=== PATIENT | male | born 1970 | race Caucasian/White ===

== ENCOUNTER 2025-07-26 17:32 | Inpatient (IN) | payer MEDICAID ==
[~2025-07-26] VITALS: Ht 177.8 cm; Wt 149.0 kg
[2025-07-26 22:28] VITALS: BP 131/87; PULSE 107; RESP 16; TEMP 97.9; O2SAT 96
[2025-07-26 23:00] VITALS: RESP 18; O2SAT 98
--- NOTE | 2025-07-27 00:27 | HISTORY AND PHYSICAL-Residence ---
History & Physical Providers to Resident Creating Document: ZARA GONZALEZPEBBLESLOVEMARY ~ History of Present Illness Reason for Admit\Complaint: GI bleeed History of Present Illness This is a 55-year-old male with a history of diastolic heart failure, CAD, DVT, pulmonary embolism, obesity, s/p gastric bypass, hypertension was transferred here from [place] for evaluation of upper GI bleed. Patient initially presented to [place] with a complaint of shortness of breadth, leg swellings. The shortness of breadth started 3-4 days ago, was slowly progressive to the point where he was unable to breathe even at rest, associated with orthopnea and PND. Also reports mild chest pain on the right side, lasted for a minute, for/10, nonradiating. Also reports palpitations while performing daily activities. Patient was admitted at [facility] [place] for management of acute hypoxemic respiratory failure and atrial fibrillation. During the admission they noticed a drop in the hemoglobin from 9-7, patient also reported black-colored stools, fecal occult blood test was positive, the patient was transferred to [facility] for GI services. Patient reports on and off black-colored stools for five days, denies hematemesis. He had an endoscopy done in [place] in September of 2024, which was apparently normal, last colonoscopy was 10 years also was apparently normal. He takes aspirin daily. He was on Eliquis for one year about four years ago. He has family history of colon cancer in his mother. He drinks alcohol almost daily, whiskey 3-4 glasses a day. He admits to consistent drinking. No known history of cirrhosis. Course at [place]-07/20/2025 to 07/27/2025 Patient was admitted for acute hypoxemic respiratory failure secondary to diastolic heart failure, was on 3-4 L of oxygen, was given Lasix and GDMTnitiated patient was found to be in new onset atrial fibrillation, with a heart rate of 160s, was on Cardizem drip, with improvement in heart rate, transition to oral medications Considering shortness of breath and tachycardia, CTA was done which ruled out pulmonary embolism. right lower lobe anemia, CT chest showed consolidation in the right lower lobe with pleural effusion, was on ceftriaxone and doxycycline, repeat chest x-ray showed improvement, antibiotics were discontinued Also managed for DIONICIO Patient reported black-colored stools, fecal occult blood test was positive with a drop in hemoglobin from 9-7, patient was transferred to [facility] for GI services. 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 Allergies: Coded Allergies: ciprofloxacin (Verified Allergy, Unknown, rash, 07/27/25) Past Medical History Past Medical History Diastolic heart failure CAD, positive stress test in July 2024, catheterization without stent placement DVT, pulmonary embolism in 2016, was on Eliquis for one year Morbid obesity Hypertension Umbilical hernia Past Surgical History Surgical History Comment Gastric bypass surgery Right shoulder rotator cuff repair Endoscopy in [place] last year, September 2024 Past Social History Social History Comment Denies history of smoking Daily alcohol use, last drink was 9 days ago, drinks 3-4 glasses of whiskey daily No history of drug use Lives with his mother Functionally independent ROS Constitutional: Denies: no symptoms reported, see HPI, chills, diaphoresis, fever, malaise, weakness, other Eyes: Denies: no symptoms reported, see HPI, pain, discharge, blurred vision, double vision, itching, photophobia, redness, tearing, other ENT: Denies: no symptoms reported, see HPI, ear pain, ear bleeding, ear discharge, hearing loss, ear ringing, nose pain, nose bleeding, nose congestion, nose discharge, throat pain, throat swelling, voice change, mouth pain, mouth bleeding, mouth swelling, other Respiratory: Reports: orthopnea, shortness of breath Cardiovascular: Denies: no symptoms reported, see HPI, chest pain, left arm pain, diaphoresis, lightheadedness, syncope, edema, palpitations, irregular heart rate, other Gastrointestinal: Reports: melena; Denies: no symptoms reported, see HPI, abdomen distended, abdominal pain, nausea, vomiting, diarrhea, constipated, hematemesis, hematochezia, rectal bleeding, rectal pain, dysphagia, poor appetite, poor fluid intake, other Genitourinary: Denies: no symptoms reported, see HPI, burning, discharge, dysuria, frequency, flank pain, hematuria, incontinence, pain, decreased urine output, urgency, other Neurological: Denies: no symptoms reported, see HPI, speech problem, headache, dizziness, fainting, tingling, left sided numbness, right sided numbness, left sided weakness, right sided weakness, problems walking, unable to move lower ext, unable to move upper ext, petit mal seizures, tonic-clonic seizures, cognitive dysfunction, other Musculoskeletal: Denies: no symptoms reported, see HPI, pain, swelling, back pain, gout, joint pain, joint swelling, muscle pain, muscle swelling, muscle stiffness, neck pain, other Exam Vitals: Vital Signs Date Time Temp Pulse Resp B/P (MAP) Pulse Ox O2 Delivery O2 Flow Rate FiO2 07/26/25 23:10 94 07/26/25 22:28 97.9 16 131/87 (102) 96 Room Air General: General: General:, obese male, alert and awake, not in acute distress Head: Normocephalic, atraumatic Eyes: Pupils- 3mm, reacting to light, conjunctiva- anicteric Neck: Supple, no lymphadenopathy, no carotid bruit Respiratory: No use of accessory muscles of respiration, no crackles or wheezing Cardiac: S1-S2 heard, rhythm regular, no murmur Abdomen: non distended, diffuse tenderness, no guarding, no rigidity, no organomegaly, bowel sounds - heard, Extremities: no clubbing, no edema, no deformities, peripheral pulses - 2+ Skin: warm and dry Advance Care Planning Advanced Care plannin - 30 Minutes (I spent 17 minutes in discussing resuscitative measures, the patient was to be full code) Additional Plan Assessment This is a 55-year-old male with a history of diastolic heart failure, CAD, DVT, pulmonary embolism, obesity, s/p gastric bypass, hypertension was transferred here from [place] for evaluation of upper GI bleed. He was initially admitted there for management of acute exacerbation of heart failure, atrial fibrillation. Upper GI bleed Likely secondary to alcohol-induced gastritis Reports black stools, no history of hematemesis Last endoscopy September 2024, last colonoscopy 10 years ago Hemoglobin 7.9 at [facility] H&H q.6, transfuse if Hb <8 concerning cardiac history Plan Started on pantoprazole 40 mg IV b.i.d. NPO for endoscopy tomorrow IV fluids not given for history of congestive heart failure with reduced ejection fraction Elevated liver enzyme Could be secondary to congestive hepatopathy vs on-call in history Liver enzymes trended down while he was at [facility] Follow up with the repeated enzymes Acute exacerbation of new onset CHF with reduced ejection fraction ACC stage C Currently on room air ProBNP 1754 Patient had pulmonary congestion at the time of admission [facility], currently lung sound clear, chest x-ray ordered ECHO on 07/20/2025 showed ejection fraction of 30-35% with diffuse hypokinesis, dilated right and left atria, last echo in July 2024 showed ejection fraction of 50-60% 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 Pedraza on 08/15 for abdominal stress test, report showed-focal mid LAD stenosis, lad was small in caliber, intervention would almost certainly involve large caliber diagonal making it complicated, no intervention was attempted. Continued atorvastatin 40 mg Aspirin held in view of GI bleed New onset Atrial fibrillation, controlled ventricular rate Chauncey Vasc score 2 Patient was in RVR at the time of admission at [facility] Continues to be in AFib with controlled ventricular rate, Continued metoprolol succinate 50 mg Anticoagulation held in view of GI bleed DIONICIO, improved Patient was in DINOICIO at the time of admission in [facility] with a creatinine of 2.6, improved to 0.9 Monitor with daily BP Possible pneumonia with right lower lobe consolidation At [facility] initial CT showed right lower lobe consolidation with small effusion, received ceftriaxone and doxycycline Repeat chest x-ray showed no pleural effusion or infiltrate No signs of infection were noticed, antibiotics were discontinued History of DVT, pulmonary embolism in 2016 At the time of admission [facility], concerning shortness of breath and tachycardia CTA was done which ruled out pulmonary embolism. Morbid Obesity BMI 47.1 Websphere Developer consult requested Code status: Full code DVT prophylaxis: None GI prophylaxis: Pantoprazole 40 mg IV b.i.d. Diet: Currently NPO Lines/tubes: Peripheral IV line Status: Guarded Samir Gonzalez M.D PGY2 Addendum I personally reviewed the chart, labs and imaging and reviewed the patient with the team. I agree with the assessment and plan as documented by the resident. Patient was seen through remote audio-visual assessment through HIPAA compliance setup. Date of Service: Jul 27, 2025 Billing Provider: KARISHMA CEBALLOS MD, PRAVAHIKA, [facility] Jul 27, 2025 00:27 KARISHMA CEBALLOS MD Jul 27, 2025 02:23
[2025-07-27] MEDS ORDERED: magnesium sulf-water 2g/50mL 50 ML IV PRN (01:10)
[2025-07-27] MEDS ORDERED: potassium Cl 20 mEq SR tablet PO PRN ×2 (01:10)
[2025-07-27] MEDS ORDERED: magnesium sulf-water 4G/100mL 100 ML IV PRN (01:10)
[2025-07-27] MEDS ORDERED: potassium Cl 40MEQ/1/2NS 520ml 520 ML IV PRN (01:10)
[2025-07-27] MEDS ORDERED: magnesium hydroxide 30ml (MOM) UD suspension PO PRN (01:10)
[2025-07-27] MEDS ORDERED: ondansetron/PF 4mg/2ml inj IV PRN (01:10)
[2025-07-27] MEDS ORDERED: mag hydrox/Alum hydrox/simeth 30ml oral suspension PO PRN (01:10)
[2025-07-27] MEDS ORDERED: magnesium Cl slow-release 64mg tablet PO PRN (01:10)
[2025-07-27] MEDS ORDERED: FOLIC A (01:31)
[2025-07-27] MEDS ORDERED: LOSA50TA64 PO (01:31)
[2025-07-27] MEDS ORDERED: EMPA10TA PO (01:31)
[2025-07-27] MEDS ORDERED: FURO20TA4 PO (01:31)
[2025-07-27] MEDS ORDERED: ATOR40TA72 PO (01:31)
[2025-07-27] MEDS ORDERED: FOLI0.4T6 PO (01:31)
[2025-07-27] MEDS ORDERED: CARV6.2553 PO (01:31)
[2025-07-27] MEDS ORDERED: THIA50TA10 PO (01:40)
[2025-07-27] MEDS ORDERED: Folic Acid PO (01:40)
[2025-07-27] MEDS ORDERED: [UNRECOGNIZED DRUG - OTHER] PO (01:40)
[2025-07-27 02:36] LABS: APTT 26 SECONDS (22-32); INR 1.0 INR
[2025-07-27 02:41] LABS: MEAN PLATELET VOLUME 9.4 FL (7.4-10.4); RED CELL DISTRIBUTION WIDTH 19.7 % (11.5-14.5)
[2025-07-27 02:49] LABS: CREATININE 1.14 MG/DL (0.60-1.10); PRO BRAIN NATRIURETIC PEPTIDE 2337 PG/ML (0-125); TOTAL CARBON DIOXIDE 27.3 MMOL/L (24-32); eCRCL 76 ML/MIN; eGFR 67 ML/MIN
[2025-07-27 03:04] LABS: PLATELET ESTIMATE DECREASED
[2025-07-27 05:00] VITALS: BP 132/67; PULSE 71; RESP 16; TEMP 98.6; O2SAT 99
--- NOTE | 2025-07-27 07:56 | ELECTROCARDIOGRAPH REPORT ---
[facility] Test Date: 2025-07-27 Test Time: 07:54:12 Pat Name: TETO MORA Department[facility] 4S [id number] Room: ORTHO [facility] B Gender: M Landscape Designer: LC : 1970 Requested By: ARLETH HEMPHILL Order Number: [id number] Reading MD: Dr. ROB Buenrostro Measurements Intervals [place] Rate: 89 P: 0 LA: 0 QRS: 39 QRSD: 99 T: 70 QT: 374 QTc: 456 Interpretive Statements Atrial fibrillation Low voltage, extremity and precordial leads Electronically Signed On 07-27-2025 17:02:[address] ROB Buenrostro Please click the below link to view image of tracing.
[2025-07-27] MEDS: K and/or MAG REPLACEMENT MC SCH (08:00)
--- NOTE | 2025-07-27 08:08 | RADIOLOGY REPORT ---
CHEST RADIOGRAPH Indication: CHF exacerbation Technique: Single frontal view of the chest was obtained Comparison: None FINDINGS: Lines and Tubes: None Lungs: No focal consolidation. Pleura: No effusion. No pneumothorax. Cardiomediastinal contours: Cardiomegaly. Bones: No acute osseous abnormality. IMPRESSION: Cardiomegaly with CHF.
[2025-07-27] MEDS: metoprolol succinate 25mg (24-HOUR) SR. Tablet PO SCH (08:16)
[2025-07-27] MEDS: docusate sod 100mg capsule PO SCH (08:16)
[2025-07-27 08:18] LABS: MEAN PLATELET VOLUME 9.1 FL (7.4-10.4); RED CELL DISTRIBUTION WIDTH 20.0 % (11.5-14.5)
[2025-07-27 10:00] VITALS: BP 125/83; PULSE 81; RESP 13; TEMP 98.2; O2SAT 99
--- NOTE | 2025-07-27 11:04 | CONSULTATION REPORT - RESIDENT ---
Consult Providers to CC Resident Creating Document: NIRMALA MORALES RES History of Present Illness Reason for Admit\Complaint: Black tarry stools, possible GI bleed History of Present Illness A 55 years old male patient with past medical history of diastolic heart failure, CAD, DVT, pulmonary embolism, obesity, s/p gastric bypass, hypertension was transferred from [facility] for the evolution of GI bleed. Patient was admitted at [facility] with acute hypoxic respiratory failure secondary to diastolic heart failure, new onset atrial fibrillation, pneumonia, DIONICIO which were improved significantly. During the hospital course, they noticed drop in hemoglobin from 9-7, Patient states that he has on and off black tarry stools. Fecal occult blood test was positive. The patient was transferred to [facility] for GI services. Patient denies any abdominal pain, nausea, vomiting, hematochezia, heartburn, dyspepsia, abdominal distention, chest pain, dizziness, syncope. Patient had endoscopy in [place] in September 2024, which was normal. Patient had colonoscopy ten years back which was normal. He takes aspirin daily. Family history of colon cancer in mother and prostatic cancer in father. Allergies: Coded Allergies: ciprofloxacin (Verified Allergy, Unknown, rash, 07/27/25) Home Medications Home Medications Active [folic a] Reported Vitamin B-1 (Thiamine HCl) 50 Mg Tablet 2 Tab PO DAILY 30 Days [spir] 12.5 Mg PO DAILY [Folic Acid*] 1 Mg PO DAILY Jardiance (Empagliflozin) 10 Mg Tablet 1 Tab PO DAILY 30 Days Atorvastatin Calcium 40 Mg Tablet 1 Tab PO DAILY Carvedilol 6.25 Mg Tablet 1 Tab PO BID Losartan Potassium 50 Mg Tablet 1 Tab PO DAILY Furosemide 20 Mg Tablet 1 Tab PO DAILY Past Medical History Past Medical History Diastolic heart failure CAD, positive stress test in July 2024, catheterization without stent placement DVT, pulmonary embolism in 2016, was on Eliquis for one year Morbid obesity Hypertension Umbilical hernia Past Surgical History Surgical History Comment Gastric bypass surgery Right shoulder rotator cuff repair Past Social History Social History Comment He drinks around 500 mL of whiskey daily from around 20 years Denies history of smoking Denies any recreational drug use Lives with his mother Functionally independent ROS ROS Constitutional: No fever, chills, dizziness, weight gain or loss, night sweats Eyes: No pain, erythema, discharge, blurring of vision ENT: No sore throat, epistaxis, tinnitus Cardiovascular:No chest pain, palpitations, syncope, lower extremity edema, paroxysmal nocturnal dyspnea Respiratory: No Shortness of breath and cough, No hemoptysis. Gastrointestinal:Reports Abdominal pain, vomiting,nausea and melena. Normal appetite. No constipation,diarrhea, hematemesis, Musculoskeletal: No swelling or edema of extremities. Integumentary: No change in skin, hair, nails. No swelling, bruising, abrasions Neurologic: No weakness,No headache, neck pain, numbness or tingling of the extremities, Psychiatric: No delusions, depression, loss of interest in normal activity or change in sleep pattern, hallucinations, suicidal ideations Endocrine: No fatigue, no weakness. polydipsia, polyuria, change in appetite, heat or cold intolerance, sweating, dry skin Hematological: No bleeding, petechiae, bruising Allergies: No asthma or urticaria Exam Vitals: Vital Signs Date Time Temp Pulse Resp B/P (MAP) Pulse Ox O2 Delivery O2 Flow Rate FiO2 07/27/25 08:15 Room Air 07/27/25 08:15 75 07/27/25 05:00 98.6 16 132/67 (88) 99 General: Awake , alert and oriented to time,place, person, moderately obese, not in distress HEENT: Atraumatic, normocephalic, PERRLA, EOMI, anicteric sclera ; pink conjunctiva, moist mucos membranes Neck: Trachea midline. Supple, normal range of motion, no JVD, no lymphadenopathy Chest and Respiratory: Equal breath sounds bilaterally, no tachypnea, wheezing, ronchi,rubs .Chest wall is symmetric and without deformity. Cardiac: S1, S2 heard,Regular rate and rhythm, no murmurs heard. Abdomen: Soft, No tenderness, No guarding or rigidity, Glover's sign negative. normal bowel sounds x4 quadrant, no hepatosplenomegaly MSK: Range of motion of all extremities are normal. There is no joint pain or joint swelling or joint erythema. There is no muscle pain or tenderness or swelling. Extremities: warm, well-perfused, No cyanosis, clubbing, 2+ pulses felt Neurological: Speech is clear, alert, and oriented x 4. No sensory or motor deficits. Cranial nerves II-XII intact. Skin: Warm and dry Psychiatry: Affect and mood are normal Diagnostic Data Last Recorded Lab Results: 9/5/25 0748 07/27/25 0212 Diagnostic Data: Laboratory Tests Test 07/27/25 02:12 Prothrombin Time 10.7 SECONDS (9.0-12.0) INR International Normalized Ratio 1.0 INR Activated Partial Thromboplast Time 26 SECONDS (22-32) Coagulation Comments Additional Plan A 55 years old male patient with past medical history of diastolic heart failure, CAD, DVT, pulmonary embolism, obesity, s/p gastric bypass, hypertension was transferred here from [place] for evaluation of upper GI bleed. Normocytic normochromic anemia Possible upper GI bleed Possible gastritis Hemoglobin is 8.7 and hematocrit is 26.9 Monitor H&H q.6h, transfuse PRBC if hemoglobin level is less than 7 Follow up with iron studies INR is normal Patient had endoscopy in [place] in September 2024, which was normal. Patient had colonoscopy ten years back which was normal. Patient takes baby aspirin daily. Continue on IV Protonix 40 mg b.i.d. daily Clear liquid diet, NPO after midnight, planned for EGD tomorrow Acute exacerbation of new onset CHF with reduced ejection fraction AHA stage C History of CAD New onset Atrial fibrillation, controlled ventricular rate Chauncey Vasc score 2 DIONICIO, improved Possible pneumonia with right lower lobe consolidation Morbid Obesity Alcohol use disorder History of DVT, pulmonary embolism in 2016 -continue management of all other comorbid conditions as per primary hospitalist team recommendation Code status: Full code DVT prophylaxis : SCDs GI prophylaxis: Protonix Nutrition: Clear liquid diet, NPO after midnight, planned for EGD tomorrow Line/tube: PIV Disposition: Patient was admitted with anemia and black tarry stools with possible upper GI bleed. planned for EGD tomorrow. Will need a screening/surveillance colonoscopy (FH colon cancer) in future. Guillermo Morales MD Internal Medicine Resident, PGY 1 Date of Service: Jul 27, 2025 Billing Provider: ANNA RODRIGUEZ MD, SUNIL KUMAR, RES Jul 27, 2025 11:04 ANNA RODRIGUEZ MD Jul 27, 2025 14:59
--- NOTE | 2025-07-27 13:09 | RADIOLOGY REPORT ---
INDICATION: elevated lft, evaluate for cirrhosis TECHNIQUE: Multiple real-time sonographic images of the abdomen were obtained. COMPARISON: None FINDINGS: The liver is heterogeneous in echogenicity. The liver measures 13cm. No intrahepatic bilia ry ductal dilatation is noted. Gallbladder surgically removed. Common bile duct measures 8 mm The right kidney measures 13cm. No hydronephrosis. The pancreas is not well visualized due to obscuration from bowel gas. The visualized portions of the IVC and aorta are grossly unremarkable. IMPRESSION: Hepatic steatosis
[2025-07-27 13:44] LABS: CHOL/HDL RATIO 2.4 (0.00-4.99); LDL CHOLESTEROL 56 MG/DL (50-100)
[2025-07-27 13:57] LABS: MEAN PLATELET VOLUME 9.2 FL (7.4-10.4); RED CELL DISTRIBUTION WIDTH 19.2 % (11.5-14.5)
--- NOTE | 2025-07-27 13:59 | PROGRESS NOTE- Residence ---
Progress Note - Resident Providers to CC Resident Creating Document: JULIAN JOHN CC: MARY ALICE WILLAMS MD ~ Antibiotic Timeout Antibiotic Ordered?: Yes Subjective Patient was examined at bedside today. He was in very good spirits. He states his last bowel movement was yesterday in the afternoon and that it was formed and brown. His last melenic stool was 1 1/2 days ago. He does reports he continues with SOB on exertion, but significantly improved. Objective Vital Signs Date Time Temp Pulse Resp B/P (MAP) Pulse Ox O2 Delivery O2 Flow Rate FiO2 07/27/25 10:00 98.2 81 13 125/83 (97) 99 Room Air Result Diagram: 07/27/25 0748 07/27/25 0212 General: obese habitus, awake, alert oriented to place, time, and person HEENT: No pallor present, no icterus, moist mucous membranes Neck: No masses and tenderness Resp: Slightly labored. Lungs clear to auscultation bilaterally. Chest: Normal expansion Cardiovascular: Difficult to auscultate due to body habitus, Regular Rate and rhythm, normal S1 and S2, no audible murmur, rub or gallop Abdomen: Soft and nontender, no organomegaly, no guarding and rigidity, bowel sounds present Neuro: No focal weakness in the upper and lower limb muscles, power of the muscles 5/5 bilateral upper and lower extremities, normal reflexes bilaterally. Cranial nerves intact Extremities: Chronic ectatic changes in both LE, 2+ edema. No cyanosis,clubbing Skin: Warm and Dry. No lesions Psych: Normal affect Coagulation Studies Laboratory Tests Test 07/27/25 02:12 Prothrombin Time 10.7 SECONDS (9.0-12.0) INR International Normalized Ratio 1.0 INR Activated Partial Thromboplast Time 26 SECONDS (22-32) Coagulation Comments Plan Plan GI bleed, likely upper Likely secondary to alcohol-induced gastritis Melena has now stopped Last endoscopy September 2024, last colonoscopy 10 years ago Hemoglobin has remained stable >8 Continue H&H q.6 Continue pantoprazole 40 mg IV b.i.d. GI on board. EGD postponed for tomorrow Resume diet. NPO after midnight Elevated liver enzymes Hepatic steatosis PT-INR are normal Liver enzymes trended down while he was at [facility] abdomen shows hepatic steatosis Continue to follow up LFTs Acute on chronic HFrEF, newly diagnosed ACC stage C, [place] class III Currently on room air ProBNP 1754 Patient had pulmonary congestion at the time of admission [facility], currently lung sound clear ECHO on 07/20/2025 showed ejection fraction of 30-35% with diffuse hypokinesis, dilated right and left atria, last echo in July 2024 showed ejection fraction of 50-60% 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 Pedraza on 08/15 for abdominal stress test, report showed-focal mid LAD stenosis, lad was small in caliber, intervention would almost certainly involve large caliber diagonal making it complicated, no intervention was attempted. Continued atorvastatin 40 mg Aspirin held in view of GI bleed New onset Atrial fibrillation, controlled ventricular rate [id number] score 3 Patient was in RVR at the time of admission at [facility], now resolved Continues to be in AFib with controlled ventricular rate Continued metoprolol succinate 50 mg Anticoagulation held in view of GI bleed DIONICIO, improved Patient was in DIONICIO at the time of admission in [facility] with a creatinine of 2.6, improved to 0.9 Monitor with daily CMP Alcohol use disorder Last drink 10 days ago He does have history of alcohol withdrawals. Currently asymptomatic He is trying to quit Substance abuse navigator consult in place Possible pneumonia with right lower lobe consolidation, ruled out At [facility] initial CT showed right lower lobe consolidation with small effusion, received ceftriaxone and doxycycline Repeat chest x-ray showed no pleural effusion or infiltrate No signs of infection were noticed, antibiotics were discontinued History of DVT, pulmonary embolism in 2016 At the time of admission [facility], concerning shortness of breath and tachycardia CTA was done which ruled out pulmonary embolism Patient was on Warfarin in the past which he discontinued 3 years ago Morbid Obesity Likely sleep apnea BMI 47.1 Setter Machine consult requested Will need sleep study on an outpatient basis Code status: Full code DVT prophylaxis: None GI prophylaxis: Pantoprazole 40 mg IV b.i.d. Diet: Heart healthy diet. NPO after midnight Lines/tubes: Peripheral IV line Status: Guarded Code Status: Full code DVT prophylaxis: None GI prophylaxis: Protonix Nutrition: Heart healthy diet Prognosis: Guarded Disposition: Continue care in ortho floor. EGD tomorrow Julian Anderson MD Internal Medicine Resident PGY-2 Date of Service: Jul 27, 2025 Billing Provider: MARY ALICE WILLAMS MD, LEONARDO LUIS Jul 27, 2025 13:59
[2025-07-27] MEDS: EMPAGLIFLOZIN 10 MG TABLET PO SCH (16:39)
[2025-07-27 18:00] VITALS: BP 120/90; PULSE 78; RESP 15; TEMP 97.4; O2SAT 100
[2025-07-27 21:23] LABS: MEAN PLATELET VOLUME 10.3 FL (7.4-10.4); RED CELL DISTRIBUTION WIDTH 19.8 % (11.5-14.5)
[2025-07-27 22:00] VITALS: BP 114/78; PULSE 99; RESP 18; TEMP 97.9; O2SAT 98
[2025-07-28] VITALS (22 sets, daily range): BP systolic 103–130; BP diastolic 53–83; PULSE 74–120; RESP 12–19; TEMP 97.3–98.5; O2SAT 94–99
[2025-07-28 02:36] LABS: MEAN PLATELET VOLUME 9.1 FL (7.4-10.4); RED CELL DISTRIBUTION WIDTH 19.4 % (11.5-14.5)
[2025-07-28 07:50] LABS: CHOL/HDL RATIO 2.7 (0.00-4.99); CREATININE 0.96 MG/DL (0.60-1.10); LDL CHOLESTEROL 59 MG/DL (50-100); PHOSPHORUS 3.9 MG/DL (2.3-4.5); TOTAL CARBON DIOXIDE 28.3 MMOL/L (24-32); eCRCL 90 ML/MIN; eGFR 81 ML/MIN
[2025-07-28] MEDS ORDERED: fentaNYL/PF 50MCG/1 ML 2ML syringe ONE (09:28)
[2025-07-28] MEDS ORDERED: LIDOcaine 2% Viscous 15ml cup ONE (09:29)
[2025-07-28] MEDS ORDERED: MIDAZolam 1 MG/ML 5ML VIAL ONE (09:29)
[2025-07-28 12:03] LABS: MEAN PLATELET VOLUME 9.2 FL (7.4-10.4); RED CELL DISTRIBUTION WIDTH 19.5 % (11.5-14.5)
[2025-07-28 12:51] LABS: % IRON SATURATION 7 % (11-46)
[2025-07-28 14:31] LABS: MEAN PLATELET VOLUME 9.4 FL (7.4-10.4); RED CELL DISTRIBUTION WIDTH 19.8 % (11.5-14.5)
--- NOTE | 2025-07-28 15:03 | CONSULTATION REPORT ---
Cardiac Consultation Report Providers to CC ~ Subjective Subjective Cardiology consultation: Finding of new cardiomyopathy. No echocardiogram on the chart. Patient examined old records reviewed from [place]. Present records reviewed medications reviewed. Patient is lying in bed comfortable and would like to go home however he does not have a primary has not established in [facility] yet and he is going to remain for a colonoscopy as there was no explanation for his GI loss. He had melanotic stools. According to records I do not have the actual reports on 08/15 patient had a heart catheterization with focal mid left anterior descending stenosis LAD was small in caliber intervention would involve large caliber diagonal no intervention was attempted by Dr. Pedraza therapist radiation at [facility]. Aspirin was held as he had a GI bleed at that time also. 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 He has remote bariatric surgery and during this hospitalization he had a endoscopy with a report of a Billroth II gastro jejunostomy. He is ejection fraction is reported to be 35% or so from another facility. Ejection fraction 55% reported from 07/2024. Electrocardiogram at rest shows rate controlled atrial fibrillation. He is presently on guideline directed therapy for heart failure. Objective Vitals Vital Signs Date Time Temp Pulse Resp B/P (MAP) Pulse Ox O2 Delivery O2 Flow Rate FiO2 07/28/25 11:26 183 07/28/25 10:30 13 119/73 (88) 99 Room Air 0.0 07/28/25 09:46 97.5 Lab Results: 07/28/25 1347 07/28/25 0603 Objective BMI 47. Carotid no bruit chest clear to auscultation percussion heart PMI not palpable very large abdomen. Femoral pulses +1 foot pulses plus one chronic pitting edema bilaterally. Ocular motion intact no nystagmus no tremors speech fluent Coagulation Studies Laboratory Tests Test 07/27/25 02:12 Prothrombin Time 10.7 SECONDS (9.0-12.0) INR International Normalized Ratio 1.0 INR Activated Partial Thromboplast Time 26 SECONDS (22-32) Coagulation Comments Problem\Assessment\Plan Additional Plan Impression alcoholic cardiomyopathy with recurrent atrial fibrillation recurrent GI bleeding remote Eliquis use. Asymptomatic atherosclerotic heart disease. Recommendation: 1. As patient does not have a primary care yet he is going to establish in [place]. He should stay and have his colonoscopy. 2. Do not restart anticoagulation. Patient qualifies for a Watchman device to be arranged as an outpatient. 3. If ambulatory heart rate becomes a problem to control would add digoxin 0.125 mg daily. He has acute kidney injury from [facility] [place] has resolved creatinine is now 0.96. EDWIN JOHNSTON MD Jul 28, 2025 15:03
[2025-07-28 16:09] LABS: LEUKOCYTE ESTERASE ,URINE NEGATIVE (Neg); NITRITES, URINE NEGATIVE (Neg); OCCULT BLOOD,URINE NEGATIVE (Neg)
[2025-07-28 16:18] LABS: UA COLLECTION TYPE CLN CATCH MIDSTREAM
[2025-07-28 16:30] LABS: URINE AMPHETAMINE SCREEN NEGATIVE (Neg); URINE BARBITUATE SCREEN NEGATIVE (Neg); URINE BENZODIAZEPINES SCREEN POSITIVE (Neg); URINE CANNABINOID SCREEN NEGATIVE (Neg); URINE COCAINE SCREEN NEGATIVE (Neg); URINE METHADONE SCREEN NEGATIVE (Neg); URINE OPIATE SCREEN NEGATIVE (Neg); URINE PHENCYCLIDINE SCREEN NEGATIVE (Neg)
--- NOTE | 2025-07-28 16:45 | PROGRESS NOTE- Residence ---
Progress Note - Resident Providers to CC Resident Creating Document: LACEY CHINCHILLA RES ~ Antibiotic Timeout Antibiotic Ordered?: No Subjective Patient seen and examined today. He is comfortably resting in the bed. He got EGD done today. He complains of on and off black tarry stools. Has not had a bowel movement this morning Objective Vital Signs Date Time Temp Pulse Resp B/P (MAP) Pulse Ox O2 Delivery O2 Flow Rate FiO2 07/28/25 14:30 91 16 110/74 (86) 97 Room Air 07/28/25 10:45 97.7 07/28/25 10:30 0.0 Result Diagram: 07/28/25 1347 07/28/25 0603 General: Alert and oriented x 4 HEENT: Normocephalic and atraumatic. Pupils equal round and reactive to light and accommodation. Extraocular movements intact. Oral and nasal mucosa moist Neck: Trachea is in midline. No masses or JVD Lungs: Bilateral normal breath sounds. Bilateral basal crackles present. No rhonchi or wheezes Heart: Regular rate and rhythm. S1-S2 normal. No rubs or murmurs Abdomen: Soft, nontender and nondistended. Bowel sounds present MIDDLE SCHOOL DIRECTOR: No gross sensory or motor abnormalities Extremities: Bilateral 2+ pedal edema. No cyanosis, clubbing or edema Skin: Warm and dry Coagulation Studies Laboratory Tests Test 07/27/25 02:12 Prothrombin Time 10.7 SECONDS (9.0-12.0) INR International Normalized Ratio 1.0 INR Activated Partial Thromboplast Time 26 SECONDS (22-32) Coagulation Comments Assessment Assessment This 55-year-old male with a past medical HFpEF-now new onset heart failure with a reduced EF, CAD, DVT, PE, obesity, s/p gastric bypass, hypotension was transferred from [facility] for evaluation of GI bleed. He was being managed for acute heart failure with a reduced EF the outside hospital. Admitted for further management. Plan Plan Acute heart failure with reduced EF - ACC stage C, NYHA class III New onset atrial fibrillation with controlled ventricular rate-going up to 180s with the movement Coronary artery disease He was initially requiring oxygen supplementation at [facility] Now on Lasix 20 mg IV b.i.d. Also on goal-directed medical therapy, metoprolol succinate 50 mg p.o. daily, losartan 50 mg p.o. daily, spironolactone 50 mg p.o. daily, Jardiance 10 mg p.o. daily Strict I&Os At the outside hospital, ECHO on 07/20/2025 showed ejection fraction of 30-35% with diffuse hypokinesis, dilated right and left atria, last echo in July 2024 showed ejection fraction of 50-60% Cardiac catheterization done by Dr. Pedraza on 08/15 for abnormal stress test, report showed-focal mid LAD stenosis, lad was small in caliber, intervention would almost certainly involve large caliber diagonal making it complicated, no intervention was attempted. Spoke with the sample case porter - about arranging a LifeVest Requested On-call title insurance agent-Dr. Deutsch for a consult in view of new onset heart failure with reduced EF, AFib-requiring Eliquis but has a underlying GI bleed Dr. Deutsch recommended that he needs to stay and get a colonoscopy done, to not restart anticoagulation and the patient qualifies for Watchman procedure outpatient. Recommended to add digoxin 0.125 mg daily if heart rate with movement is going up. Appreciate recommendations He remains in AFib with controlled ventricular rate at rest but heart rate goes up to 180s on movement but quickly dropped started normal. Started digoxin as recommended by the title insurance agent Chauncey Vasc score four. But, held Eliquis in view of GI bleed. Held aspirin as well TSH elevated but free T4 within normal limits. Likely subclinical hyperthyroidism U Tox positive for benzodiazepines A1c 4.8. LDL 59. Continue Lipitor 40 mg p.o. daily Needs outpatient sleep study for obstructive sleep apnea Possible GI bleed H&H stable EGD done today which showed normal esophagus, Billroth II gastrojejunostomy with healthy-appearing mucosa. Biopsied Recommended colonoscopy on Wednesday or outpatient colonoscopy As patient does not have an established PCP and has high risk factors like colon cancer in mother at the age of 55 years, GI bleed with black tarry stools. He will be staying till Wednesday to get a colonoscopy done He also received octreotide drip at the outside hospital Continue Protonix 40 mg IV b.i.d. Continue regular diet now Will start clear liquids tomorrow and also GoLYTELY later in the day Iron studies showed 74 ferritin, low serum iron 25, low percent saturation-7 Started Ferrlecit 125 mg IV daily Pending vitamin B12 and folate level Requires RBC transfusion if HGB less than eight considering underlying heart failure with reduced EF Elevated liver enzymes Hepatic steatosis AST and ALT trending down. Total bilirubin and alkaline phosphatase within normal limits PT-INR are normal Liver enzymes trended down while he was at [facility] US abdomen shows hepatic steatosis Continue to follow up LFTs Acute kidney injury-resolved Patient was in DIONICIO at the time of admission in [facility] with a creatinine of 2.6, improved to 0.9 Likely due to volume depletion-vasomotor nephropathy Alcohol use disorder Last drink 10 days ago He does have history of alcohol withdrawals. Currently asymptomatic He is trying to quit Substance abuse navigator consult in place Possible pneumonia with right lower lobe consolidation, ruled out At [facility] initial CT showed right lower lobe consolidation with small effusion, received ceftriaxone and doxycycline Repeat chest x-ray showed no pleural effusion or infiltrate No signs of infection were noticed, antibiotics were discontinued History of DVT, pulmonary embolism in 2015 At the time of admission [facility], concerning shortness of breath and tachycardia CTA was done which ruled out pulmonary embolism Patient was on Warfarin in the past which he discontinued 3 years ago Morbid Obesity Likely sleep apnea BMI 47.1 Psychologists consult requested Will need sleep study on an outpatient basis Code status: Full code DVT prophylaxis: SCDs GI prophylaxis: Pantoprazole 40 mg IV b.i.d. Diet: Sodium restricted diet Lines/tubes: Peripheral IV line Status: Guarded Disposition: Held aspirin and Eliquis. Cardiology agree with the plan. Colonoscopy on Wednesday. Started digoxin. Monitor for heart rate with movement Lacey Chinchilla MD Internal Medicine Resident, PGY 3 Date of Service: Jul 28, 2025 Billing Provider: MARY ALICE WILLAMS MD, MANOJNA RES Jul 28, 2025 16:45
[2025-07-28] MEDS ORDERED: HYDROcodone/acetaminophen 10/325mg tab PO PRN (17:35)
[2025-07-28] MEDS ORDERED: HYDROcodone/acetaminophen 5mg/325mg tablet PO PRN (17:35)
[2025-07-28] MEDS: sodium ferric gluc complex inj 125 MG in normal saline 100ml IV soln 100 ML IV SCH (18:04)
[2025-07-28 20:07] LABS: MEAN PLATELET VOLUME 9.5 FL (7.4-10.4); RED CELL DISTRIBUTION WIDTH 19.7 % (11.5-14.5)
[2025-07-29 06:00] VITALS: BP 124/51; PULSE 79; RESP 17; TEMP 98; O2SAT 97
[2025-07-29 08:57] LABS: MEAN PLATELET VOLUME 9.5 FL (7.4-10.4); RED CELL DISTRIBUTION WIDTH 19.7 % (11.5-14.5)
[2025-07-29] MEDS: digoxin 125mcg (0.125mg) tablet PO SCH (09:09)
[2025-07-29 09:39] LABS: CREATININE 1.50 MG/DL (0.60-1.10); PHOSPHORUS 3.8 MG/DL (2.3-4.5); TOTAL CARBON DIOXIDE 25.4 MMOL/L (24-32); eCRCL 57 ML/MIN; eGFR 49 ML/MIN
[2025-07-29 10:00] VITALS: BP 92/56; PULSE 87; RESP 19; TEMP 97.7; O2SAT 99
[2025-07-29 13:50] LABS: MEAN PLATELET VOLUME 9.0 FL (7.4-10.4); RED CELL DISTRIBUTION WIDTH 19.5 % (11.5-14.5)
[2025-07-29] MEDS: PEG 3350/Na sulf,bicarb,Cl/KCl oral sol 4 liter bottle PO ONE (14:00)
--- NOTE | 2025-07-29 15:53 | PROGRESS NOTE- Residence ---
Progress Note - Resident Providers to CC Resident Creating Document: LACEY CHINCHILLA RES ~ Antibiotic Timeout Antibiotic Ordered?: No Subjective Patient seen and examined today. He is comfortably resting in the chair. Denies any complaints. Colonoscopy tomorrow in a.m.. He wanted to drink GoLYTELY with gatorade but explained to him that it has a lot of sodium and is risky with his underlying heart failure with a reduced EF. He understands and is okay to have GoLYTELY with apple juice. Did not receive his morning Lasix, metoprolol, spironolactone due to soft blood pressure. Received his LifeVest today Objective Vital Signs Date Time Temp Pulse Resp B/P (MAP) Pulse Ox O2 Delivery O2 Flow Rate FiO2 07/29/25 14:49 164 07/29/25 10:00 97.7 19 92/56 (68) 99 Room Air 07/28/25 10:30 0.0 Result Diagram: 07/29/25 1338 07/29/25 0749 General: Alert and oriented x 4 HEENT: Normocephalic and atraumatic. Pupils equal round and reactive to light and accommodation. Extraocular movements intact. Oral and nasal mucosa moist Neck: Trachea is in midline. No masses or JVD Lungs: Bilateral normal breath sounds. No crackles, rhonchi or wheezing Heart: Regular rate and rhythm. S1-S2 normal. No rubs or murmurs Abdomen: Soft, nontender and nondistended. Bowel sounds present HEEL SEAT FLAP STAPLER: No gross sensory or motor abnormalities Extremities: Bilateral 1+ pedal edema. No cyanosis, clubbing or edema Skin: Warm and dry Coagulation Studies Laboratory Tests Test 07/27/25 02:12 Prothrombin Time 10.7 SECONDS (9.0-12.0) INR International Normalized Ratio 1.0 INR Activated Partial Thromboplast Time 26 SECONDS (22-32) Coagulation Comments Assessment Assessment This 55-year-old male with a past medical HFpEF-now new onset heart failure with a reduced EF, CAD, DVT, PE, obesity, s/p gastric bypass, hypotension was transferred from [facility] for evaluation of GI bleed. He was being managed for acute heart failure with a reduced EF the outside hospital. Admitted for further management. Plan Plan Acute heart failure with reduced EF - ACC stage C, NYHA class III New onset atrial fibrillation with controlled ventricular rate-going up to 180s with the movement Coronary artery disease He was initially requiring oxygen supplementation at [facility]-n ow on room air Decrease Lasix to 20 mg IV daily Continue metoprolol succinate 50 mg p.o. daily, and spironolactone to 12.5 mg p.o. daily. Continue Jardiance 10 mg p.o. daily. Held losartan in view of DIONICIO Strict I&Os At the outside hospital, ECHO on 07/20/2025 showed ejection fraction of 30-35% with diffuse hypokinesis, dilated right and left atria, last echo in July 2024 showed ejection fraction of 50-60% Cardiac catheterization done by Dr. Pedraza on 08/15 for abnormal stress test, report showed-focal mid LAD stenosis, lad was small in caliber, intervention would almost certainly involve large caliber diagonal making it complicated, no intervention was attempted. Received his LifeVest today drafter civil-Dr. Deutsch recommended to hold Eliquis until GI bleed results and medical management for heart failure with reduced EF with an addition of digoxin. Appreciate recommendations Telemetry showed AFib with controlled ventricular rate with the occasional increase in heart rate to 160s lasting less than 1 minute Chauncey Vasc score four. But, held Eliquis in view of GI bleed. Held aspirin as well TSH elevated but free T4 within normal limits. Likely subclinical hyperthyroidism U Tox positive for benzodiazepines A1c 4.8. LDL 59. Continue Lipitor 40 mg p.o. daily Needs outpatient sleep study for obstructive sleep apnea Possible GI bleed H&H stable EGD done on 07/28/2025 which showed normal esophagus, Billroth II gastrojejunostomy with healthy-appearing mucosa. Biopsied Recommended colonoscopy on Wednesday or outpatient colonoscopy As patient does not have an established PCP and has high risk factors like colon cancer in mother at the age of 55 years, GI bleed with black tarry stools. He will be staying till Wednesday to get a colonoscopy done He also received octreotide drip at the outside hospital Continue Protonix 40 mg IV b.i.d. Continue regular diet now Started clear liquid diet and GoLYTELY with apple juice. NPO after midnight. GI-Dr. Amezcua aware. Appreciate recommendations Iron studies showed 74 ferritin, low serum iron 25, low percent saturation-7 Continue Ferrlecit 125 mg IV daily Pending vitamin B12 and folate level Requires RBC transfusion if HGB less than eight considering underlying heart failure with reduced EF Elevated liver enzymes Hepatic steatosis AST and ALT trending down. Total bilirubin and alkaline phosphatase within normal limits PT-INR are normal Liver enzymes trended down while he was at [facility] US abdomen shows hepatic steatosis Continue to follow up LFTs Acute kidney injury-resolved Patient was in DIONICIO at the time of admission in [facility] with a creatinine of 2.6, improved to 0.9 07/28/2025 Likely due to volume depletion-vasomotor nephropathy Today, creatinine went up to 1.5. Continue GoLYTELY and decrease Lasix to 20 mg IV daily Monitor creatinine tomorrow Hold losartan in view of DIONICIO Alcohol use disorder Last drink 10 days ago He does have history of alcohol withdrawals. Currently asymptomatic He is trying to quit Substance abuse navigator consult in place Possible pneumonia with right lower lobe consolidation, ruled out At [facility] initial CT showed right lower lobe consolidation with small effusion, received ceftriaxone and doxycycline Repeat chest x-ray showed no pleural effusion or infiltrate No signs of infection were noticed, antibiotics were discontinued History of DVT, pulmonary embolism in 2016 At the time of admission [facility], concerning shortness of breath and tachycardia CTA was done which ruled out pulmonary embolism Patient was on Warfarin in the past which he discontinued 3 years ago Morbid Obesity Likely sleep apnea BMI 47.1 Kitchen Aide consult requested Will need sleep study on an outpatient basis Code status: Full code DVT prophylaxis: SCDs GI prophylaxis: Pantoprazole 40 mg IV b.i.d. Diet: Sodium restricted diet Lines/tubes: Peripheral IV line Status: Guarded Disposition: Held aspirin and Eliquis. Colonoscopy tomorrow and possible discharge after colonoscopy. NPO after midnight. Requires outpatient sleep study. Start low-dose losartan or lisinopril at the time of discharge with a follow up CMP in 3-5 days Lacey Chinchilla MD Internal Medicine Resident, PGY 3 Date of Service: Jul 29, 2025 Billing Provider: MARY ALICE WILLAMS MD, MANOJNA RES Jul 29, 2025 15:53
[2025-07-29 16:51] VITALS: BP 112/64; PULSE 94; RESP 18; TEMP 97.8; O2SAT 100
[2025-07-29 18:00] VITALS: BP 112/64; PULSE 94; RESP 18; TEMP 97.8; O2SAT 100
[2025-07-29] MEDS: pantoprazole 40mg Tablet.DR PO SCH (19:55)
[2025-07-29 20:49] LABS: MEAN PLATELET VOLUME 9.7 FL (7.4-10.4); RED CELL DISTRIBUTION WIDTH 19.5 % (11.5-14.5)
[2025-07-29 22:00] VITALS: BP 124/70; PULSE 64; RESP 17; TEMP 97.9; O2SAT 98
[2025-07-30] VITALS (12 sets, daily range): BP systolic 99–130; BP diastolic 54–81; PULSE 79–109; RESP 10–18; TEMP 97.5–98.1; O2SAT 93–100
[2025-07-30 06:57] LABS: MEAN PLATELET VOLUME 9.6 FL (7.4-10.4); RED CELL DISTRIBUTION WIDTH 19.4 % (11.5-14.5)
[2025-07-30 07:25] LABS: CREATININE 1.14 MG/DL (0.60-1.10); PHOSPHORUS 2.8 MG/DL (2.3-4.5); TOTAL CARBON DIOXIDE 25.4 MMOL/L (24-32); eCRCL 76 ML/MIN; eGFR 67 ML/MIN
[2025-07-30] MEDS ORDERED: simethicone 40mg/0.6ml oral drops 15ml ONE (13:25)
[2025-07-30] MEDS ORDERED: fentaNYL/PF 50MCG/1 ML 2ML syringe ONE (13:27)
[2025-07-30] MEDS ORDERED: MIDAZolam 1 MG/ML 5ML VIAL ONE (13:29)
[2025-07-30] MEDS ORDERED: FOLI1TAB27 PO (16:27)
[2025-07-30] MEDS ORDERED: PANT40TA54 PO (16:27)
[2025-07-30] MEDS ORDERED: SPIR25TA PO (16:27)
[2025-07-30] MEDS ORDERED: THIA50TA10 PO (16:27)
[2025-07-30] MEDS ORDERED: LISI2.5T14 PO (16:27)
[2025-07-30] MEDS ORDERED: METO-395 PO ×2 (16:27→16:42)
[2025-07-30] MEDS ORDERED: FERR324T4 PO (16:27)
[2025-07-30] MEDS ORDERED: LAN0.125T PO (16:27)
[2025-07-30] MEDS ORDERED: FURO20TA4 PO (16:38)
--- NOTE | 2025-07-30 20:20 | DISCHARGE SUMMARY-Residence ---
Discharge Summary Providers to CC Resident Creating Document: LACEY CHINCHILLA RES ~ Discharge Summary Admission Diagnosis: Heart failure/AFib/GI bleed Hospital Course DATE OF ADMISSION: 07/27/2025 DATE OF DISCHARGE: 07/30/2025 As in HPI: This is a 55-year-old male with a history of diastolic heart failure, CAD, DVT, pulmonary embolism, obesity, s/p gastric bypass, hypertension was transferred he re from [place] for evaluation of upper GI bleed. Patient initially presented to [place] with a complaint of shortness of breadth, leg swellings. The shortness of breadth started 3-4 days ago, was slowly progressive to the point where he was unable to breathe even at rest, associated with orthopnea and PND. Also reports mild chest pain on the right side, lasted for a minute, for/10, nonradiating. Also reports palpitations while performing daily activities. Patient was admitted at [place] for management of acute hypoxemic respiratory failure and atrial fibrillation. During the admission they noticed a drop in the hemoglobin from 9-7, patient also reported black-colored stools, fecal occult blood test was positive, the patient was transferred to [facility] for GI services. Patient reports on and off black-colored stools for five days, denies hematemesis. He had an endoscopy done in [place] in September of 2024, which was apparently normal, last colonoscopy was 10 years also was apparently normal. He takes aspirin daily. He was on Eliquis for one year about four years ago. He has family history of colon cancer in his mother. He drinks alcohol almost daily, whiskey 3-4 glasses a day. He admits to consistent drinking. No known history of cirrhosis. Course at [place]-07/20/2025 to 07/27/2025 Patient was admitted for acute hypoxemic respiratory failure secondary to diastolic heart failure, was on 3-4 L of oxygen, was given Lasix and GDMTnitiated patient was found to be in new onset atrial fibrillation, with a heart rate of 160s, was on Cardizem drip, with improvement in heart rate, transition to oral medications Considering shortness of breath and tachycardia, CTA was done which ruled out pulmonary embolism. right lower lobe anemia, CT chest showed consolidation in the right lower lobe with pleural effusion, was on ceftriaxone and doxycycline, repeat chest x-ray showed improvement, antibiotics were discontinued Also managed for DIONICIO Patient reported black-colored stools, fecal occult blood test was positive with a drop in hemoglobin from 9-7, patient was transferred to [facility] for GI services. He does not have a superintendent maintenance airports. During the hospital stay, he was treated for acute exacerbation of heart failure with a reduced EF and also workup for possible GI bleed. He initially had acute hypoxemic respiratory failure with the outside hospital and required oxygen supplementation but did not require any oxygen supplementation here in this hospital. He was treated for IV Lasix and other goal-directed medical therapy for heart failure 100 symptoms significantly improved. His hemoglobin remained stable between 8-6. He got an EGD done on 07/28/2025 which showed normal esophagus, Billroth II gastrojejunostomy with a healthy-appearing mucosa- biopsied. A colonoscopy was done on 07/30/2025 which showed one 8 mm polyp in the ascending colon-removed with a cold snare and nonbleeding internal hemorrhoids. He also was in AFib with controlled ventricular rate but heart rate went up to 130s when he moves and that was transient. So, consulted on- call superintendent maintenance airports-Dr. Deutsch who recommended to add digoxin to metoprolol. 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 He was also given a LifeVest 07/29/2025. His DIONICIO likely from volume depletion-vasomotor nephropathy improved. Today, he is stable for discharge back to home. He was clearly given all the instructions as mentioned below. He was also educated to follow up with the biopsy results. His blood pressure was soft and so his losartan 50 mg was stopped and changed to low-dose lisinopril-2.5 mg once daily. General: Alert and oriented x 4 HEENT: Normocephalic and atraumatic. Pupils equal round and reactive to light and accommodation. Extraocular movements intact. Oral and nasal mucosa moist Neck: Trachea is in midline. No masses or JVD Lungs: Bilateral normal breath sounds. No crackles, rhonchi or wheezing Heart: Regular rate and rhythm. S1-S2 normal. No rubs or murmurs Abdomen: Soft, nontender and nondistended. Bowel sounds present DEPALLETIZER OPERATOR: No gross sensory or motor abnormalities Extremities: Bilateral 1+ pedal edema. No cyanosis, clubbing or edema Skin: Warm and dry Discharge instructions: Please continue to take Lasix 40 mg p.o. daily, metoprolol succinate 25 mg p.o. daily, spironolactone 12.5 mg p.o. daily, lisinopril 2.5 mg daily at night, Jardiance 10 mg daily, digoxin 125 mcg p.o. daily for your heart failure with a reduced EF.. Check blood pressure and pulse rate daily. Hold spironolactone, lisinopril and Jardiance if systolic blood pressure less than 120 mmHg and take metoprolol succinate and Lasix. Also hold Lasix if systolic blood pressure less than 110 mmHg. Also hold metoprolol if systolic blood pressure less than 100 mmHg. Continue to take iron supplementation. You need to be on anticoagulation medication for atrial fibrillation but not starting due to high-risk of gut bleeding. Please discuss with your PCP during your appointment on 08/09 about starting oral anticoagulation. Please check your H&H 3-5 days after starting anticoagulation and continue to follow up with your PCP. Also follow up with a superintendent maintenance airports-Dr. Deutsch and GI-Dr. Amezcua within 1-2 weeks after discharge. Please monitor for any black tarry stools or bright red blood in stool and visit ER if you develop any such symptoms. Please get a sleep study done outpatient. Continue to wear LifeVest. Please restrict fluid intake to 1.5-2 L per day and sodium intake less than 2 g per day. Please avoid drinking high sodium fluids like Gatorade. 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 Amezcua and Dr. Deutsch Complications: None Condition on DC: Stable New Medications: Ferrous Sulfate (Ferrous Sulfate) 324 Mg (65 Mg Iron) Tablet.dr 1 TAB PO DAILY for 30 Days, #30 TAB 0 Refills Lisinopril (Lisinopril) 2.5 Mg Tablet 1 TAB PO HS for 30 Days, #30 TAB 0 Refills Digoxin (Digitek) 125 Mcg (0.125 Mg) Tablet 125 MCG PO DAILY for 30 Days, #30 TAB Folic Acid* (Folic Acid*) Y Tab 1 MG PO DAILY for 30 Days, #30 TAB Metoprolol Succinate (Metoprolol Succinate) 25 Mg Tab.sr.24h 50 MG PO DAILY for 30 Days, #60 TAB.SR Pantoprazole Sodium (Pantoprazole Sodium) 40 Mg Tablet.dr 40 MG PO Q12H for 30 Days, #60 TAB.SR Spironolactone (Aldactone) 25 Mg Tablet 12.5 MG PO DAILY@0830 for 30 Days, #15 TAB Changed Medications: Furosemide (Furosemide) 20 Mg Tablet 2 TAB PO DAILY for 30 Days, #60 TAB (Changed from: 1 TAB) Thiamine HCl (Vitamin B-1) 50 Mg Tablet 100 MG PO DAILY for 30 Days, #60 TAB 0 Refills (Changed from: 2 TAB) Continued Medications: Atorvastatin Calcium (Atorvastatin Calcium) 40 Mg Tablet 1 TAB PO DAILY Empagliflozin (Jardiance) 10 Mg Tablet 1 TAB PO DAILY for 30 Days, #30 TAB 0 Refills Discontinued Medications: Carvedilol (Carvedilol) 6.25 Mg Tablet 1 TAB PO BID [folic a] () [Folic Acid*] () 1 MG PO DAILY Losartan Potassium (Losartan Potassium) 50 Mg Tablet 1 TAB PO DAILY [spir] () 12.5 MG PO DAILY Discharge Summary: As above *Problems/Diagnosis: (1) Acute HFrEF (heart failure with reduced ejection fraction) (2) Anemia Total Time Spent on D/C: > 30 Minutes Date of Service: Jul 30, 2025 Billing Provider: LACEY CHINCHILLA RES, MANOJNA RES Jul 30, 2025 20:18
== END 2025-07-30 17:33 | disposition home or self-care (01) | DRG 254 ==
LOC: ORTHO 4S 22:18
PROVIDERS: ADMIT Family Medicine; ATTEND Family Medicine
PROC: 0DBA8ZX Excision of Jejunum, Via Natural or Artificial Opening Endoscopic, Diagnostic (ICD-10-PCS; 2025-07-28)
PROC: 0DBK8ZZ Excision of Ascending Colon, Via Natural or Artificial Opening Endoscopic (ICD-10-PCS; principal; 2025-07-30)
DX: K92.1 Melena (principal); N17.0 Acute kidney failure with tubular necrosis; I50.23 Acute on chronic systolic (congestive) heart failure; I11.0 Hypertensive heart disease with heart failure; I42.9 Cardiomyopathy, unspecified; I50.32 Chronic diastolic (congestive) heart failure; G47.33 Obstructive sleep apnea (adult) (pediatric); E66.01 Morbid (severe) obesity due to excess calories; D12.2 Benign neoplasm of ascending colon; K64.8 Other hemorrhoids; I25.10 Atherosclerotic heart disease of native coronary artery without angina pectoris; I48.91 Unspecified atrial fibrillation; Z86.718 Personal history of other venous thrombosis and embolism; Z68.42 Body mass index [BMI] 45.0-49.9, adult
CPT/HCPCS: 36415; 43239; 45385; 71045; 76700; 80053; 80061; 80305; 81003; 82140; 82607; 82728; 82746; 83036; 83540; 83550; 83735; 83880; 84100; 84439; 84443; 84466; 85008; 85025; 85027; 85610; 85730; 86885; 86900; 86901; 87081; 93005; 99152; 99153; 99285; A4620; C1889; G0378; J1938; J2250; J2470; J2916; J3010; J7040; J7120